=== PATIENT | male | born 1955 | race Caucasian/White ===

== ENCOUNTER 2022-02-21 19:43 | Emergency (ER) | payer OTHER ==
[~2022-02-21] VITALS: Ht 170.2 cm; Wt 78.9 kg
--- NOTE | 2022-02-21 19:58 | NUR ---
BIBFAMILY C/O NOSE BLEED FOR PAST 3 WEEK ON AND OFF, NO LYNN, DIZZINESS, OR WEAKNESS. PT A/OX4. TOLERATING R/A WELL WITH NO SOB. PT AMBULATORY WITH STEADY GAIT
[2022-02-21] MEDS ORDERED: LET SOLN TOPICAL 8 ML UDC TP ONE ×2 (20:07→20:30)
--- NOTE | 2022-02-21 20:22 | NUR ---
RHINO-ROCKET APPLIED TO L NARE BY DR. WALL. WILL MONITOR FOR BLEEDING
[2022-02-21] MEDS ORDERED: CEPH500C2 PO (20:50)
--- NOTE | 2022-02-21 20:57 | NUR ---
Patient discharged to home in stable condition. Written and verbal after care instructions given. Patient verbalizes understanding of instruction. Pt ambulatory with a steady gait
--- NOTE | 2022-02-21 20:57 | NUR ---
Patient discharged to home in stable condition. Written and verbal after care instructions given. Patient verbalizes understanding of instruction. PT ambulatory with a steady gait. NOT ACTIVE BLEEDING NOTED
[2022-02-21 20:58] VITALS: BP 164/98
== END 2022-02-21 20:58 | disposition home or self-care (01) ==
LOC: ER 20:04
DX: R04.0 Epistaxis (principal); I10 Essential (primary) hypertension; Z79.899 Other long term (current) drug therapy; Z60.2 Problems related to living alone
CPT/HCPCS: 30901; 99284; A6403

== ENCOUNTER 2022-02-24 17:20 | Emergency (ER) | payer OTHER ==
[~2022-02-24] VITALS: Ht 170.2 cm; Wt 78.9 kg
[~2022-02-24 17:20] MED LIST: CEPH500C2 PO
[2022-02-24 18:02] VITALS: BP 125/81
== END 2022-02-24 18:45 | disposition home or self-care (01) ==
LOC: ER 17:26
DX: R04.0 Epistaxis (principal); Z48.00 Encounter for change or removal of nonsurgical wound dressing; I10 Essential (primary) hypertension; Z60.2 Problems related to living alone; Z79.899 Other long term (current) drug therapy